=== PATIENT | male | born 1965 | race Hispanic/Latino ===

== ENCOUNTER 2022-05-11 12:50 | Inpatient (IN) | payer SELFPAY ==
[2022-05-11 13:21] LABS: #Lymphocytes 0.9 thou/uL (1.20-3.40); #Monocytes 0.5 thou/uL (0.11-0.59); #Neutrophils 11.1 thou/uL (1.40-6.50); %Basophils 0.2 % (0.0-1.0); %Eosinophils 0.1 % (0.0-10.0); %Lymphocytes 7.4 % (21.0-51.0); %Monocytes 3.6 % (0.0-10.0); %Neutrophils 88.7 % (42.0-75.0); Hemoglobin 17.6 g/dL (14.0-18.0); Mean Corpuscular HGB CONC 32.9 g/dL (32.0-36.0); Mean Corpuscular Hemoglobin 31.5 pg (27.0-31.0); Mean Corpuscular Volume 95.7 fL (78.0-98.0); Mean Platelet Volume 9.1 fL (7.4-10.4); Platelet Count 318 thou/uL (130-400); RBC Distribution Width 11.9 % (11.5-14.5); Red Blood Cell (RBC) Count 5.57 mill/uL (4.70-6.10); White Blood Cell (WBC) Count 12.6 thou/uL (4.8-10.8)
[2022-05-11 13:48] LABS: ALT (SGPT) 53 U/L (8-55); AST (SGOT) 31 U/L (5-34); Albumin 4.7 g/dL (3.5-5.0); Alkaline Phosphatase 131 U/L (40-110); BUN (Urea Nitrogen) 47 mg/dL (8.4-25.7); Bilirubin, Total 0.6 mg/dL (0.2-1.2); CK (CPK) 211 U/L (30-200); Calc. Creatinine Clearance 0 mL/min (70-130); Calcium 10.2 mg/dL (7.8-10.44); Carbon Dioxide Less than 8 mmol/L (22-29); Chloride 88 mmol/L (98-107); Estimated GFR 22; Globulin 3.7 g/dL (2.4-3.5); Glucose 754 mg/dL (70-105); Magnesium 2.8 mg/dL (1.6-2.6); Potassium 5.4 mmol/L (3.5-5.1); Protein, Total 8.4 g/dL (6.0-8.3); Sodium 135 mmol/L (136-145)
[2022-05-11 13:49] LABS: Actual Bicarbonate (HCO3a) 5.7 mEq/L (22-28); Analyzer IN Cardio ER; Base Excess (BEa) -22.3 mEq/L (-2.0 to +3.0); Calcium, Ionized (arterial) 1.17 mmol/L (1.12-1.30); Carboxyhemoglobin (COHb) 0.3 gm% (0.0-3.0); Hemoglobin (Hb) 14.3 g/dL (14.0-18.0); O2 Tension (PaO2), arterial 127.4 mmHg (80.0-100.0); Potassium - ABG Lab 4.51 mmol/L (3.70-5.30)
[2022-05-11 14:06] LABS: CO2 Tension 19.1 mmHg (35.0-45.0); Puncture Site RBA; pH, Arterial 7.09 (7.35-7.45)
[2022-05-11 14:07] LABS: Bilirubin Negative (Negative); Blood, Urine Negative (Negative); Clarity Clear (Clear); Glucose, Urine (Dipstick) Greater than 1000 mg/dL (Negative); Ketone, Urine 150 mg/dL (Negative); Leukocyte Negative Leu/uL (Negative); Nitrite Negative (Negative); Protein, Urine (Dipstick) 20 mg/dL (Neg-Trace); Specific Gravity, Urine 1.024 (1.002-1.036); Urobilinogen Normal mg/dL (Less than 2)
[2022-05-11] MEDS ORDERED: Insulin Regular 300 UNITS/3 ML VIAL ONE (14:16)
[2022-05-11] MEDS ORDERED: INSULIN REGULAR IN 0.9 % NACL 100 UNIT/100 ML BAG ONE ×2 (14:16→14:27)
[2022-05-11] MEDS ORDERED: Electrolyte Replacement Protocol 1 EACH IVPB SCH (14:38)
[2022-05-11] MEDS ORDERED: NS 0.9% w/ 20 MEQ KCL 1,000 ML IV PRN ×2 (14:38)
[2022-05-11] MEDS ORDERED: Sodium Chloride 0.9% 1,000 ML IV PRN ×4 (14:38)
[2022-05-11] MEDS ORDERED: Dextrose 5 %-0.45 % NaCl 1,000 ML IV PRN (14:38)
[2022-05-11] MEDS ORDERED: HUMULIN R 100 UNITS in Sodium Chloride 0.9% 100 ML IVPB SCH (14:45)
[2022-05-11] MEDS ORDERED: Lactated Ringer's 1,000 ML IV SCH ×2 (14:45→16:30)
[2022-05-11] MEDS ORDERED: Labetalol HCl 100 MG/20 ML VIAL SLOW IVP PRN (14:49)
[2022-05-11] MEDS ORDERED: Acetaminophen 325 MG TAB PO PRN (14:49)
[2022-05-11] MEDS ORDERED: Artificial Tear Sol 15 ML BOT EA EYE PRN (14:49)
[2022-05-11] MEDS ORDERED: Acetaminophen 650 MG Suppository PR PRN (14:49)
[2022-05-11] MEDS ORDERED: hydrALAZINE 20 MG/ML VIAL SLOW IVP PRN (14:49)
[2022-05-11] MEDS ORDERED: Moisturizing Cream (Eucerin) 113 GM JAR TOP PRN (14:49)
[2022-05-11] MEDS ORDERED: Sodium Chloride 0.65% Nasal 44 ML BOT EA NARE PRN (14:49)
[2022-05-11 15:43] LABS: Actual Bicarbonate (HCO3a) 6.8 mEq/L (22-28); Analyzer IN Cardio ER; Calcium, Ionized (arterial) 1.19 mmol/L (1.12-1.30); Carboxyhemoglobin (COHb) 0.3 gm% (0.0-3.0); Hemoglobin (Hb) 15.2 g/dL (14.0-18.0); O2 Tension (PaO2), arterial 107.7 mmHg (80.0-100.0)
[2022-05-11 16:17] LABS: ALT (SGPT) 41 U/L (8-55); AST (SGOT) 22 U/L (5-34); Albumin 3.5 g/dL (3.5-5.0); Alkaline Phosphatase 101 U/L (40-110); BUN (Urea Nitrogen) 43 mg/dL (8.4-25.7); Bilirubin, Total 0.4 mg/dL (0.2-1.2); Calc. Creatinine Clearance 0 mL/min (70-130); Calcium 7.7 mg/dL (7.8-10.44); Carbon Dioxide Less than 8 mmol/L (22-29); Chloride 108 mmol/L (98-107); Estimated GFR 33; Globulin 2.4 g/dL (2.4-3.5); Glucose 509 mg/dL (70-105); Magnesium 2.2 mg/dL (1.6-2.6); Potassium 4.3 mmol/L (3.5-5.1); Protein, Total 5.9 g/dL (6.0-8.3); Sodium 140 mmol/L (136-145)
[2022-05-11 16:28] LABS: pH, Arterial 7.15 (7.35-7.45)
[2022-05-11 16:29] LABS: CO2 Tension 19.8 mmHg (35.0-45.0); Puncture Site RBA
[2022-05-11] MEDS ORDERED: Potassium Chloride 20 MEQ/100 ML PREMIX BAG ONE (16:49)
[2022-05-11] MEDS ORDERED: Enoxaparin Sodium 40 MG/0.4 ML SYRINGE SC SCH (17:00)
[2022-05-11] MEDS ORDERED: Enoxaparin Sodium 40 MG/0.4 ML SYRINGE ONE ×2 (17:51→17:54)
[2022-05-11 18:44] LABS: Anion Gap 26 mmol/L (10-20); BUN (Urea Nitrogen) 39 mg/dL (8.4-25.7); Calc. Creatinine Clearance 38 mL/min (70-130); Chloride 109 mmol/L (98-107); Estimated GFR 39; Glucose 385 mg/dL (70-105); Lipase 201 U/L (8-78); Potassium 4.4 mmol/L (3.5-5.1); Sodium 140 mmol/L (136-145)
[2022-05-11 18:47] LABS: Hemoglobin A1c Greater than 14.0 % (4.0-6.0)
[2022-05-11 18:52] LABS: Carbon Dioxide 9 mmol/L (22-29)
[2022-05-11 20:05] LABS: Thyroid Stimulating Hormone 1.1858 uIU/mL (0.35-4.94)
[2022-05-11] MEDS: D5 1/2 NS w/20 mEq KCL 1,000 ML IV PRN (20:58)
[2022-05-11 23:30] LABS: Insulin 42.5 uU/mL (3.0-25.0)
[2022-05-11 23:47] LABS: Anion Gap 21 mmol/L (10-20); BUN (Urea Nitrogen) 33 mg/dL (8.4-25.7); Calc. Creatinine Clearance 44 mL/min (70-130); Calcium 8.2 mg/dL (7.8-10.44); Carbon Dioxide 12 mmol/L (22-29); Chloride 111 mmol/L (98-107); Estimated GFR 47; Glucose 283 mg/dL (70-105); Sodium 139 mmol/L (136-145)
[2022-05-12] MEDS: D5 1/2 NS w/20 mEq KCL 1,000 ML IV PRN ×2 (00:54→05:04)
[2022-05-12 04:27] LABS: Anion Gap 15 mmol/L (10-20); BUN (Urea Nitrogen) 24 mg/dL (8.4-25.7); Calc. Creatinine Clearance 58 mL/min (70-130); Carbon Dioxide 18 mmol/L (22-29); Cardiac Risk 4.9 (Less than 4.5); Chloride 112 mmol/L (98-107); Cholesterol 152 mg/dl (< 200 Desired); Estimated GFR 65; Glucose 209 mg/dL (70-105); HDL Cholesterol 31 mg/dL (>60 Neg Risk); LDL Cholesterol, Calculated 97 mg/dL; Potassium 3.6 mmol/L (3.5-5.1); Sodium 141 mmol/L (136-145); Triglycerides 122 mg/dL (Less than 150)
[2022-05-12 05:11] VITALS: BMI 24.5
[2022-05-12] MEDS ORDERED: Dextrose 50% Abboject 50 ML SYRINGE SLOW IVP PRN (06:53)
[2022-05-12] MEDS ORDERED: Dextrose 5% in Water 1,000 ML IV PRN (06:53)
[2022-05-12] MEDS ORDERED: Insulin Glargine 30 UNITS/0.3 ML VIAL SC SCH (07:15)
[2022-05-12] MEDS: Enoxaparin Sodium 40 MG/0.4 ML SYRINGE SC SCH (08:22)
[2022-05-12] MEDS ORDERED: DC CCU Insulin Drip FS ONE (09:00)
[2022-05-12] MEDS ORDERED: Lactated Ringer's 1,000 ML IV SCH (10:00)
[2022-05-12] MEDS: Lactated Ringer's 1,000 ML IV SCH ×3 (10:36→23:18)
[2022-05-12] MEDS: HumaLOG 300 UNITS/3 ML VIAL SC PRN ×2 (17:08→20:27)
[2022-05-12] MEDS: Insulin Glargine 30 UNITS/0.3 ML VIAL SC SCH (20:28)
[2022-05-13] MEDS: HumaLOG 300 UNITS/3 ML VIAL SC PRN ×3 (04:10→21:14)
[2022-05-13 04:16] LABS: Anion Gap 13 mmol/L (10-20); BUN (Urea Nitrogen) 10 mg/dL (8.4-25.7); Calc. Creatinine Clearance 102 mL/min (70-130); Calcium 8.4 mg/dL (7.8-10.44); Carbon Dioxide 26 mmol/L (22-29); Chloride 103 mmol/L (98-107); Estimated GFR 105; Glucose 188 mg/dL (70-105); Sodium 139 mmol/L (136-145)
[2022-05-13 04:21] LABS: Potassium 2.8 mmol/L (3.5-5.1)
[2022-05-13] MEDS: Potassium Chloride 20 MEQ TAB PO SCH ×2 (05:32→07:54)
[2022-05-13] MEDS: Lactated Ringer's 1,000 ML IV SCH ×3 (05:32→21:15)
[2022-05-13 07:21] LABS: Magnesium 1.8 mg/dL (1.6-2.6)
[2022-05-13] MEDS: Insulin Glargine 30 UNITS/0.3 ML VIAL SC SCH ×2 (07:53→21:12)
[2022-05-13] MEDS: Enoxaparin Sodium 40 MG/0.4 ML SYRINGE SC SCH (07:55)
[2022-05-13] MEDS ORDERED: Magnesium 2 GM/50 ML(in water) 2 GM in Premix Bag 1 BAG IVPB SCH (09:00)
[2022-05-13] MEDS ORDERED: Atorvastatin Calcium 20 MG TAB PO SCH (21:00)
[2022-05-14] MEDS: HumaLOG 300 UNITS/3 ML VIAL SC PRN ×2 (05:48→12:43)
[2022-05-14 07:43] LABS: Anion Gap 14 mmol/L (10-20); BUN (Urea Nitrogen) 11 mg/dL (8.4-25.7); Calc. Creatinine Clearance 108 mL/min (70-130); Calcium 8.7 mg/dL (7.8-10.44); Carbon Dioxide 25 mmol/L (22-29); Chloride 102 mmol/L (98-107); Estimated GFR 107; Glucose 201 mg/dL (70-105); Potassium 3.4 mmol/L (3.5-5.1); Sodium 138 mmol/L (136-145)
[2022-05-14 08:00] VITALS: BP 155/71; TEMP 98.4
[2022-05-14] MEDS: Insulin Glargine 30 UNITS/0.3 ML VIAL SC SCH (08:50)
[2022-05-14] MEDS: Enoxaparin Sodium 40 MG/0.4 ML SYRINGE SC SCH (08:58)
[2022-05-14] MEDS ORDERED: Potassium Chloride 20 MEQ TAB PO SCH (10:30)
== END 2022-05-14 16:02 | disposition home or self-care (01) | DRG 637 ==
LOC: ERS 12:50 → ERHOLD 14:54 → IMCU/EMU 18:42 → T4-A 05-13 19:35
PROVIDERS: ADMIT Family Medicine; ATTEND Family Medicine
DX: E11.10 Type 2 diabetes mellitus with ketoacidosis without coma (principal); G93.41 Metabolic encephalopathy; N17.9 Acute kidney failure, unspecified; I10 Essential (primary) hypertension; D72.829 Elevated white blood cell count, unspecified; E78.5 Hyperlipidemia, unspecified; Z79.84 Long term (current) use of oral hypoglycemic drugs; Z79.899 Other long term (current) drug therapy
CPT/HCPCS: 36415; 36416; 36600; 51702; 71045; 80048; 80053; 80061; 81003; 82010; 82550; 82805; 83036; 83519; 83525; 83605; 83690; 83735; 83930; 84100; 84443; 84484; 84681; 85025; 86341; 93005; 96361; 96365; 96374; J1650; J1815; J3475; J3480; J7120; U0003; U0005

== ENCOUNTER 2022-05-17 11:16 | Emergency (ER) | payer SELFPAY ==
[2022-05-17 12:11] LABS: #Basophils 0.1 thou/uL (0.0-0.2); #Eosinphils 0.1 thou/uL (0.0-0.7); #Lymphocytes 2.3 thou/uL (1.20-3.40); #Monocytes 0.9 thou/uL (0.11-0.59); #Neutrophils 4.7 thou/uL (1.40-6.50); %Basophils 0.7 % (0.0-1.0); %Eosinophils 1.2 % (0.0-10.0); %Lymphocytes 28.1 % (21.0-51.0); %Monocytes 11.2 % (0.0-10.0); %Neutrophils 58.8 % (42.0-75.0); Hemoglobin 14.8 g/dL (14.0-18.0); Mean Corpuscular HGB CONC 35.2 g/dL (32.0-36.0); Mean Corpuscular Hemoglobin 32.5 pg (27.0-31.0); Mean Corpuscular Volume 92.4 fL (78.0-98.0); Platelet Count 257 thou/uL (130-400); RBC Distribution Width 11.5 % (11.5-14.5); Red Blood Cell (RBC) Count 4.56 mill/uL (4.70-6.10); White Blood Cell (WBC) Count 8.1 thou/uL (4.8-10.8)
[2022-05-17 12:39] LABS: ALT (SGPT) 146 U/L (8-55); AST (SGOT) 86 U/L (5-34); Albumin 4.1 g/dL (3.5-5.0); Alkaline Phosphatase 130 U/L (40-110); Anion Gap 18 mmol/L (10-20); BUN (Urea Nitrogen) 24 mg/dL (8.4-25.7); Bilirubin, Total 0.5 mg/dL (0.2-1.2); Calc. Creatinine Clearance 0 mL/min (70-130); Calcium 9.5 mg/dL (7.8-10.44); Carbon Dioxide 21 mmol/L (22-29); Chloride 96 mmol/L (98-107); Estimated GFR 82; Glucose 403 mg/dL (70-105); Potassium 4.6 mmol/L (3.5-5.1); Protein, Total 7.1 g/dL (6.0-8.3); Sodium 130 mmol/L (136-145)
== END 2022-05-17 13:25 | disposition home or self-care (01) ==
LOC: ERS 11:16
DX: E11.65 Type 2 diabetes mellitus with hyperglycemia (principal); E78.5 Hyperlipidemia, unspecified; Z79.899 Other long term (current) drug therapy; Z79.4 Long term (current) use of insulin
CPT/HCPCS: 36416; 80053; 82010; 85025; 96360